=== PATIENT | female | born 1990 | race Caucasian/White ===

== ENCOUNTER 2020-09-10 07:09 | Emergency (ER) | payer OTHER, SELFPAY ==
[2020-09-10 07:14] VITALS: BP 129/87; PULSE 99; RESP 17; TEMP 36; O2SAT 97; BMI 31.8
[2020-09-10 07:22] VITALS: BP 129/87; PULSE 105; RESP 18; O2SAT 100
[2020-09-10] MEDS: ondansetron 2 mg/ML SDV 2 mL 4 MG IVP (07:37)
[2020-09-10] MEDS: sodium chloride 0.9% 1,000 ML 999 ML IV (07:37)
--- NOTE | 2020-09-10 07:40 | W.ED.ABDPA2 ---
HPI - Abdominal Pain General: Chief Complaint: Abdominal Pain Stated Complaint: ABD pain Time Seen by Provider: 09/10/20 07:18 History of Present Illness: HPI narrative: Patient is a 30-year-old female with past medical history of PCOS who comes to the ER complaining of nausea, vomiting, diarrhea, abdominal pain, bloating, and she has a chronic history of anxiety. The nausea vomiting and diarrhea started last night approximately an hour after dinner. She said she had pork. MD elicited complaint: abdominal pain Pain Consistency: constant Location: Diffuse Severity: moderate Quality: cramping Associated Symptoms: Reports change in bowel habits, GI cramping, diarrhea, nausea and vomiting; Denies fecal incontinence Review of Systems General: Reports: 10 or more systems reviewed and unremarkable except in HPI and below Const: Denies: fatigue Eyes: Denies: change in vision, blurry vision or eye redness ENMT: Denies: throat pain, swelling of lips/tongue, ear or mastoid pain or nasal congestion Card: Denies: chest pain, palpitations, irregular heart rhythm, edema, dyspnea on exertion or orthopnea Resp: Denies: dyspnea, productive cough or non-productive cough GI: Reports: abdominal pain, nausea, vomiting, diarrhea, GI cramping and change in bowel habits; Denies: fecal incontinence : Denies: flank pain, difficulty voiding, urinary frequency or urinary urgency Musc: Denies: neck pain, back pain, extremity pain, joint pain, joint redness, limited range of motion or muscle weakness Skin/Breast: Denies: rash, pruritus, erythema, skin pain or skin tenderness Neuro: Denies: headache(s), numbness in extremities, weakness in extremities, sensory changes, difficulty walking, dizziness, confusion or Slurred speech present Psych: Denies: anxiety or depression Endo: Denies: polyuria All/Imm: Denies: urticaria, throat swelling or tongue swelling Physical Exam Const: COMMON NORMALS: no acute distress, average body habitus, patient oriented x3, no limitations, healthy appearing, alert and well nourished GENERAL APPEARANCE: cooperative, comfortable, well kempt and well developed ORIENTATION/CONSCIOUSNESS: Yes awake, Yes oriented to person, Yes oriented to place and Yes oriented to time HENMT: COMMON NORMALS: normocephalic, external ears normal and Normal external nose present HEAD & SCALP: normal to inspection and normocephalic NOSE: Normal external nose present EXTERNAL EAR: Yes external ears normal MOUTH: Normal oral and palatal mucosa present THROAT: posterior oropharynx normal Eye: COMMON NORMALS: Equal, round and reactive pupils present and EOMs intact bilaterally GENERAL EYE: appearance normal, both eyes and all related structures PUPIL: Yes Equal, round and reactive pupils present Neck/C-Spine: COMMON NORMALS: full ROM, no lymphadenopathy, no meningeal signs and no JVD GENERAL: Yes normal visual inspection Lymph: LYMPHATIC: no lymphadenopathy noted Chest: COMMONS NORMALS: normal inspection of the chest and normal palpation of entire chest wall Resp: COMMON NORMALS: normal respiratory effort, No retractions, No use of accessory muscles, clear to auscultation bilaterally and percussion normal EFFORT & INSPECTION: Yes able to speak in complete sentences AUSCULTATION: clear to auscultation bilaterally PERCUSSION: percussion normal Cardio: COMMON NORMALS: no JVD, regular rate, regular rhythm, S1 normal heart sound present, S2 normal heart sound present and Peripheral pulses 2+ throughout RATE: regular rate RHYTHM: regular rhythm HEART SOUNDS: S1 normal heart sound present and S2 normal heart sound present PERIPHERAL PULSES: Peripheral pulses 2+ throughout GI: COMMON NORMALS: Normal to inspection, nondistended, normoactive bowel sounds present, Soft to palpation and no masses INSPECTION: Yes normal to inspection PALPATION: Yes Soft to palpation OTHER: Mild upper abdominal tenderness. : COMMON NORMALS: Yes no CVA tenderness BLADDER/KIDNEY EXAM: Yes no CVA tenderness Back/Pelvis: COMMON NORMALS: no CVA tenderness, thoracic and lumbar spine normal to inspection, no thoracic nor lumbar tenderness and thoraco-lumbar ROM normal Extremity: COMMON NORMALS: normal to inspection, full ROM, capillary refill normal, no joint enlargement and no pedal edema GENERAL: Yes normal exam except as noted Neuro: COMMON NORMALS: patient oriented x3, CN's II-XII intact bilaterally, moves all extremities, no focal motor deficits, no sensory deficits noted and gait normal SENSORIUM/ORIENTATION: Yes alert, Yes oriented to person, Yes oriented to place and Yes oriented to time MENINGEAL SIGNS: Yes no meningeal signs Psych: COMMON NORMALS: mental status grossly normal, Normal thought process present, cooperative, normal affect and speech normal APPEARANCE: Yes well kempt ATTITUDE: Yes calm SPEECH: Yes normal speech THOUGHT PROCESS: Normal thought process present Skin: COMMON NORMALS: no rashes or lesions noted GENERAL SKIN EXAM: no rashes or lesions noted Course Vital Signs: Vital signs: Vital Signs Temperature 96.8 F L 09/10/20 07:14 Pulse Rate 86 09/10/20 09:08 Respiratory Rate 17 09/10/20 09:08 Blood Pressure 115/82 09/10/20 09:08 Pulse Oximetry 100 09/10/20 09:08 MDM - Abdominal Pain MDM Narrative: Medical decision making narrative: Patient has symptoms of gastroenteritis. Stool sample was collected as she has a history of C. difficile in the past. Instructed her to call medical records tomorrow to get the results of that. CT also shows a colitis. She will be discharged with Cipro and Flagyl. Follow-up with primary care in a few days. ER with worsening symptoms. Drink lots of fluids and use Zofran to help with your nausea Lab Data: Labs: Lab Results 09/10/20 09/10/20 09/10/20 Range/Units 07:33 07:33 07:33 WBC 10.4 H (4.0-10.0) 10^3/ uL RBC 4.82 (4.1-5.3) 10^6/u L Hgb 15.0 (11.5-15.3) g/dL Hct 42.7 (37.0-47.0) % MCV 88.6 (81-99) fL MCH 31.1 (28.0-34.0) pg MCHC 35.1 (30.0-36.0) g/dL RDW 12.6 (12.1-15.1) % Plt Count 222 (130-400) 10^3/c mm MPV 11.2 H (7.4-10.4) fL Neut % (Auto) 74.0 % Lymph % (Auto) 18.0 % Prow[place] % (Auto) 6.4 % Eos % (Auto) 1.1 % Baso % (Auto) 0.3 % Neut # (Auto) 7.70 (1.8-7.7) 10^3/u L Lymph # (Auto) 1.9 (0.8-4.8) 10^3/u L P[place] # (Auto) 0.7 (0.2-0.9) 10^3/u L Eos # (Auto) 0.1 (0.0-0.8) 10^3/u L Baso # (Auto) 0.0 (0.0-0.1) 10^3/u L Nucleated RBC % (a uto) 0 % Nucleated RBCs # 0.0 /100WBC Sodium 137 (136-145) mmol/L Potassium 3.7 (3.5-5.1) mmol/L Chloride 102 (98-107) mmol/L Carbon Dioxide 21 L (22-29) mmol/L Anion Gap 17.7 (5-19) BUN 11 (6-20) mg/dL Creatinine 0.8 (0.5-0.9) mg/dL GFR Calculation 84.8 L (90-130) mL/min Glucose 109 (65-115) mg/dL Calculated Osmolal ity 284 L (285-295) mOsm/k g Lactate (0.5-2.2) mmol/L Calcium 10.0 (8.5-10.5) mg/dL Total Bilirubin 1.0 (0.15-1.2) mg/dL AST 23 (0-32) U/L ALT 44 H (0-33) U/L Alkaline Phosphata se 65 (35-105) IU/L Total Protein 7.4 (6.6-8.7) g/dL Albumin 4.6 (3.5-5.2) g/dL Globulin 2.8 (1.3-4.6) g/dL Lipase 25 (13-60) U/L HCG, Qual Negative (Negative) Urine Color (Yellow) Urine Appearance (CLEAR) Urine pH (5-7) Ur Specific Gravit y (1.005-1.030) Urine Protein (Negative) Urine Glucose (UA) (Normal) Urine Ketones (Negative) Urine Blood (Negative) Urine Nitrate (Negative) Urine Bilirubin (Negative) Prot Sulfosalicyli c Acd (Negative) Urine Urobilinogen (Negative) mg/dL Ur Leukocyte Danni ase (Negative) Urine RBC (0-2) /hpf Urine WBC (0-5) /hpf Ur Squamous Epith Cells (0-5) /hpf Amorphous Sediment Urine Bacteria (NONE) /hpf 09/10/20 09/10/20 Range/Units 07:33 08:04 WBC (4.0-10.0) 10^3/ uL RBC (4.1-5.3) 10^6/u L Hgb (11.5-15.3) g/dL Hct (37.0-47.0) % MCV (81-99) fL MCH (28.0-34.0) pg MCHC (30.0-36.0) g/dL RDW (12.1-15.1) % Plt Count (130-400) 10^3/c mm MPV (7.4-10.4) fL Neut % (Auto) % Lymph % (Auto) % [place] % (Auto) % Eos % (Auto) % Baso % (Auto) % Neut # (Auto) (1.8-7.7) 10^3/u L Lymph # (Auto) (0.8-4.8) 10^3/u L [place] # (Auto) (0.2-0.9) 10^3/u L Eos # (Auto) (0.0-0.8) 10^3/u L Baso # (Auto) (0.0-0.1) 10^3/u L Nucleated RBC % (a uto) % Nucleated RBCs # /100WBC Sodium (136-145) mmol/L Potassium (3.5-5.1) mmol/L Chloride (98-107) mmol/L Carbon Dioxide (22-29) mmol/L Anion Gap (5-19) BUN (6-20) mg/dL Creatinine (0.5-0.9) mg/dL GFR Calculation (90-130) mL/min Glucose (65-115) mg/dL Calculated Osmolal ity (285-295) mOsm/k g Lactate 3.9 H (0.5-2.2) mmol/L Calcium (8.5-10.5) mg/dL Total Bilirubin (0.15-1.2) mg/dL AST (0-32) U/L ALT (0-33) U/L Alkaline Phosphata se (35-105) IU/L Total Protein (6.6-8.7) g/dL Albumin (3.5-5.2) g/dL Globulin (1.3-4.6) g/dL Lipase (13-60) U/L HCG, Qual (Negative) Urine Color Yellow (Yellow) Urine Appearance Sl hazy (CLEAR) Urine pH 9 H (5-7) Ur Specific Gravit y 1.010 (1.005-1.030) Urine Protein Neg (Negative) Urine Glucose (UA) Norm (Normal) Urine Ketones Negative (Negative) Urine Blood Neg (Negative) Urine Nitrate Negative (Negative) Urine Bilirubin Neg (Negative) Prot Sulfosalicyli c Acd Negative (Negative) Urine Urobilinogen Norm (Negative) mg/dL Ur Leukocyte Danni ase Trace H (Negative) Urine RBC None (0-2) /hpf Urine WBC 5-10 H (0-5) /hpf Ur Squamous Epith Cells 25-40 H (0-5) /hpf Amorphous Sediment Not Reportable Urine Bacteria 1+ H (NONE) /hpf Discharge Plan Discharge Patient Disposition: Home Clinical Impression: Gastroenteritis, Colitis Condition: Stable Prescriptions: New ciprofloxacin HCl 500 mg tablet 500 mg PO Q12H Qty: 20 RF: 0 Flagyl 500 mg tablet 500 mg PO BID 10 Days Qty: 20 RF: 0 ondansetron 4 mg tablet,disintegrating 4 mg PO Q8H 5 Days Qty: 15 RF: 0 Discharge Orders: Discharge ED (Routine); Ordered 09/10/20 Ordered By: Judson Matthew Discharge Diet: Advance as tolerated Discharge Activity: Resume usual activity Patient Instructions: Gastroenteritis (ED), Opioid Safety Activity Restrictions/Additional Instructions: You have gastroenteritis and colitis. Please use the Zofran to help with your nausea and take antibiotics as instructed. Return to the ER with worsening symptoms. Follow-up with your primary care physician in a few days to monitor improvement of your symptoms. Stand Alone Forms: Work/School Release Coding Level of Care Code ED T[employer] Hel[employer] for [employer] Exam Comprehensive
[2020-09-10 07:48] LABS: Basophils % 0.3 %; Eosinophils # 0.1 10^3/uL (0.0-0.8); Eosinophils % 1.1 %; Hematocrit 42.7 % (37.0-47.0); Lymphocytes # 1.9 10^3/uL (0.8-4.8); Mean Corpuscular HGB Conc 35.1 g/dL (30.0-36.0); Mean Corpuscular Hemoglobin 31.1 pg (28.0-34.0); Mean Corpuscular Volume 88.6 fL (81-99); Mean Platelet Volume 11.2 fL (7.4-10.4); Monocytes # 0.7 10^3/uL (0.2-0.9); Monocytes % 6.4 %; Nucleated Red Blood Cells % 0 %; Platelet Count 222 10^3/cmm (130-400); Red Blood Count 4.82 10^6/uL (4.1-5.3); Red Cell Distribution Width 12.6 % (12.1-15.1); White Blood Count 10.4 10^3/uL (4.0-10.0)
--- NOTE | 2020-09-10 07:52 | CT_ITS ---
WS: [id number] CT ABDOMEN PELVIS TECHNIQUE: Contrast-enhanced CT of the abdomen and pelvis with coronal and sagittal reformatted image s. CLINICAL INFORMATION: abd pain COMPARISON: None. DLP: 1639.[address] scans at [facility] use at least one of these dose optimization techniques: automat ed exposure control; mA and/or kV adjustment per patient size (includes targeted exams where dose is matched to clinical indication); or iterative reconstruction. FINDINGS: Diffuse fatty infiltration of the liver. Normal portal vein and splenic vein. Normal gallbladder. Nor mal spleen. Adrenal glands are normal. Normal renal parenchymal enhancement. No hydronephrosis. Lung bases are well aerated. Fluid-filled nondilated colon. A few air-fluid levels in the transverse colon. Slight mucosal enhance ment involving the colon more prominent in the cecum and hepatic flexure. Findings can be seen with m ild infectious or inflammatory colitis. Normal terminal ileum. Normal appendix. Small bowel is normal in appearance. No evidence of small or large bowel obstruction. Enlarged multi follicular ovaries bi laterally. No free fluid in the pelvis. Normal lumbar spine. CT/CT abdomen pelvis w con* [id number] IMPRESSION: 1. Fluid-filled normal caliber colon with a few air-fluid levels in the transv erse colon. Mild mucosal enhancement involving the colon more prominent in the cecum and splenic flexure. Findings can be seen with mild infectious or inflamm atory colitis. 2. Small bowel is normal in appearance. No evidence of small or large bowel ob struction. 3. No free fluid in the pelvis. 4. Enlarged multi follicular ovaries bilaterally physiologic in a patient this age. 5. No other significant findings.
[2020-09-10 08:02] LABS: Lactate (Lactic Acid level) 3.9 mmol/L (0.5-2.2)
[2020-09-10 08:03] LABS: Alanine Aminotransferase 44 U/L (0-33); Albumin Level 4.6 g/dL (3.5-5.2); Alkaline Phosphatase 65 IU/L (35-105); Anion Gap 17.7 (5-19); Aspartate Amino Transferase 23 U/L (0-32); Blood Urea Nitrogen 11 mg/dL (6-20); Carbon Dioxide 21 mmol/L (22-29); Chloride 102 mmol/L (98-107); Globulin 2.8 g/dL (1.3-4.6); Glomerular Filtration Rate 84.8 mL/min (90-130); Glucose 109 mg/dL (65-115); Lipase 25 U/L (13-60); Osmolality Calculated 284 mOsm/kg (285-295); Potassium 3.7 mmol/L (3.5-5.1); Sodium 137 mmol/L (136-145); Total Protein 7.4 g/dL (6.6-8.7)
[2020-09-10 08:06] VITALS: PULSE 92; RESP 16; O2SAT 98
[2020-09-10 08:07] LABS: HCG, Serum Qual Negative (Negative)
[2020-09-10 08:29] LABS: Add Urine Microscopic? YES; Bilirubin Urine Neg (Negative); Blood Urine Neg (Negative); Glucose Urine UA Norm (Normal); Ketones Urine Negative (Negative); Leukocyte Esterase Urine Trace (Negative); Nitrate Urine Negative (Negative); Protein Urine Neg (Negative); Sulfosalicylic Acid Urine Negative (Negative); Urine Appearance SL Hazy (CLEAR); Urine Color Yellow (Yellow); Urobilinogen Urine Norm (Negative); pH Urine 9 (5-7)
[2020-09-10 08:30] LABS: Add Urine Culture? No; Bacteria Urine 1+ /hpf; Squamous Epithelial Cell Urine 25-40 /hpf (0-5)
[2020-09-10] MEDS: iohexol 300 mg/mL 100 mL Btl IV (08:59)
[2020-09-10 09:08] VITALS: BP 115/82; PULSE 86; RESP 17; O2SAT 100
[2020-09-10] MEDS: ciprofloxacin 500 mg Tablet PO (09:58)
[2020-09-10] MEDS: metroNIDAZOLE 500 MG Tablet PO (09:58)
[2020-09-10] MEDS: promethazine 25 mg/mL SDV 1 mL IM (10:05)
[2020-09-10 10:11] VITALS: BP 117/79; PULSE 79; RESP 18; O2SAT 98
== END 2020-09-10 10:11 | disposition home or self-care (01) ==
PROVIDERS: Physician Assistant; Emergency Provider Family Medicine
DX: K52.9 Noninfective gastroenteritis and colitis, unspecified (principal)
CPT/HCPCS: 36415; 74177; 80053; 81001; 83605; 83690; 84703; 85025; 87040; 87493; 96372; 99283; J2405; J2550; J7030; Q9967

== ENCOUNTER 2021-07-13 12:00 | Outpatient (CLI) | payer OTHER, SELFPAY | END 2021-07-13 12:01 | disposition home or self-care (01) | LOC: SLEEP 07-14 14:21 | PROVIDERS: PCP Family Medicine; Visit Provider Specialist | DX: G47.33 Obstructive sleep apnea (adult) (pediatric) (principal); R09.02 Hypoxemia | CPT/HCPCS: G0399 ==